=== PATIENT | female | born 1970 | race Caucasian/White ===

== ENCOUNTER 2024-02-14 17:24 | Emergency (ER) | payer SELFPAY ==
[2024-02-14] MEDS ORDERED: Acetaminophen 500 MG TAB ONE (18:28)
== END 2024-02-14 18:48 | disposition home or self-care (01) ==
LOC: CSHERS 17:24
DX: S50.02XA Contusion of left elbow, initial encounter (principal); S60.221A Contusion of right hand, initial encounter; I10 Essential (primary) hypertension; F17.290 Nicotine dependence, other tobacco product, uncomplicated; X58.XXXA Exposure to other specified factors, initial encounter
CPT/HCPCS: 99283